=== PATIENT | male | born 1960 | race Caucasian/White ===

== ENCOUNTER → 2020-09-25 | Day surgery (SDC) | payer MEDICARE, OTHER ==
[~2020-09-25] MED LIST: ATORVASTATIN CA20 MG PO; FORTAMET1000 MG PO; GLIPIZIDE5 MG PO; HYDROCODON-ACE1 EAC4 PO; NORVASC5 MG PO; POLYETHYLENE GLY1 GM PO; PREPARATION H1 EAC1 PR; TOPROL XL 25 MG25 MG PO; VITAMIN D21250 MCG PO; VITAMIN D325 MCG PO; ZESTRIL40 MG PO
== END | disposition home or self-care (01) ==
LOC: OR 06:19
PROVIDERS: Surgery
PROC: 0DBP8ZX Excision of Rectum, Via Natural or Artificial Opening Endoscopic, Diagnostic (ICD-10-PCS; 2020-09-25)
PROC: 0DBH8ZX Excision of Cecum, Via Natural or Artificial Opening Endoscopic, Diagnostic (ICD-10-PCS; principal; 2020-09-25 08:15)
DX: K62.4 Stenosis of anus and rectum (principal); D12.0 Benign neoplasm of cecum; C20 Malignant neoplasm of rectum; K62.5 Hemorrhage of anus and rectum; I10 Essential (primary) hypertension; E78.5 Hyperlipidemia, unspecified; E66.01 Morbid (severe) obesity due to excess calories; E11.9 Type 2 diabetes mellitus without complications; Z79.84 Long term (current) use of oral hypoglycemic drugs; Z79.899 Other long term (current) drug therapy
CPT/HCPCS: 82962; 88341; 88342; J2704; J7120

== ENCOUNTER → 2021-02-13 | Day surgery (SDC) | payer MEDICARE, OTHER | END | disposition home or self-care (01) | LOC: OR 05:57 | DX: C20 Malignant neoplasm of rectum (principal); E11.9 Type 2 diabetes mellitus without complications; E78.5 Hyperlipidemia, unspecified; I10 Essential (primary) hypertension; Z79.84 Long term (current) use of oral hypoglycemic drugs | CPT/HCPCS: 71045; 77001; 82962; C1769; C1788; J0690; J1100; J1642; J2001; J2250; J2405; J2704; J3010; J7030; J7040; J7120 ==

== ENCOUNTER 2021-04-16 10:08 | Emergency (ER) | payer MEDICARE, OTHER ==
[2021-04-16] MEDS ORDERED: LOVENOX120 MG/0.8 SQ (14:03)
[2021-04-16 14:23] LABS: HEMOGLOBIN 12.5 gm/dl (14.0-17.5); RED BLOOD COUNT 3.89 M/UL (4.20-5.50); WHITE BLOOD COUNT 4.7 K/UL (4.5-11.0)
[2021-04-16 14:53] LABS: BUN/CREATININE RATIO 17 (0-10)
== END 2021-04-16 14:30 | disposition home or self-care (01) ==
LOC: ER1 10:08
PROVIDERS: Physician Assistant
DX: I82.411 Acute embolism and thrombosis of right femoral vein (principal); I82.441 Acute embolism and thrombosis of right tibial vein; E11.9 Type 2 diabetes mellitus without complications; I10 Essential (primary) hypertension; Z85.3 Personal history of malignant neoplasm of breast
CPT/HCPCS: 80053; 85025; 85379; 85610; 93971; 99284; J1650

== ENCOUNTER 2021-09-18 11:45 | Emergency (ER) | payer MEDICARE, OTHER ==
[~2021-09-18] VITALS: Ht 175.3 cm; Wt 102.1 kg
[~2021-09-18 11:45] MED LIST changes: +LOVENOX120 MG/0.8 SQ
== END 2021-09-18 15:33 | disposition home or self-care (01) ==
LOC: ER1 11:45
DX: U07.1 COVID-19 (principal); Z23 Encounter for immunization; E11.9 Type 2 diabetes mellitus without complications; I10 Essential (primary) hypertension
CPT/HCPCS: 99283; M0247